=== PATIENT | female | born 1995 | race Caucasian/White ===

== ENCOUNTER 2017-12-02 13:53 | Emergency (ER) | payer MEDICAID, OTHER ==
[~2017-12-02] VITALS: Ht 157.5 cm; Wt 90.7 kg
[2017-12-02 15:55] LABS: BASOPHILS % (AUTO) 1.3 % (0.0-2.0); EOSINOPHILS % (AUTO) 1.4 % (0.0-3.0); HEMATOCRIT 52.3 % (37.0-47.0); HEMOGLOBIN 17.5 G/DL (12.0-16.0); LYMPHOCYTES % (AUTO) 29.2 % (20.0-45.0); MEAN CORPUSCULAR VOLUME 86 FL (80-99); MONOCYTES % (AUTO) 6.4 % (1.0-10.0); NEUTROPHILS % (AUTO) 61.7 % (45.0-75.0); PLATELET COUNT 337 K/UL (150-450); RED BLOOD COUNT 6.07 M/UL (4.20-5.40)
[2017-12-02 16:07] LABS: ANION GAP 9 mmol/L (5-15); BLOOD UREA NITROGEN 12 mg/dL (7-18); CALCIUM 10.1 MG/DL (8.5-10.1); CARBON DIOXIDE 27 MMOL/L (21-32); CHLORIDE 98 MMOL/L (98-107); CREATININE 0.8 MG/DL (0.55-1.30); POTASSIUM 3.8 MMOL/L (3.5-5.1); SODIUM 134 MMOL/L (136-145)
[2017-12-02 16:11] LABS: ALANINE AMINOTRANSFERASE 22 U/L (12-78); ALBUMIN 4.2 G/DL (3.4-5.0); ALBUMIN/GLOBULIN RATIO 0.9 (1.0-2.7); ALKALINE PHOSPHATASE 48 U/L (46-116); ASPARTATE AMINO TRANSFERASE 14 U/L (15-37); BILIRUBIN,TOTAL 0.9 MG/DL (0.2-1.0)
[2017-12-02] MEDS ORDERED: TYLENOL EXTRA500 MG ORAL (16:19)
--- NOTE | 2017-12-02 16:20 | Emergency Room Report ---
History of Present Illness General Chief Complaint: General Complaint Source: Patient Present Illness HPI 22 yo female patient presents to ER complaining of skin numbness over her left jaw x1day. Reports numbness has been constant. Patient reports hx of wisdom teeth extraction last Wednesday and was sent by oral surgeon to ER for further evaluation for blood disorder. Patient reports she had 3 wisdom teeth removed at that time; denies complications of procedure. Patient denies hx of cardiovascular and clotting disease. Denies hx of atrial fibrillation or other cardiac arrhythmia. Denies hx of blood disorder. Denies pain, burning sensation. Denies hx of trauma. Reports hx of acne in the same area. Denies hx of syncopal episode. Denies hx of fever, chest pain, SOB, nausea, vomiting. Allergies: Coded Allergies: PENICILLINS (Verified Allergy, Unknown, 12/02/17) Patient History Past Medical History: see triage record Immunizations: UTD Reviewed Nursing Documentation: PMH: Agreed, PSxH: Agreed Nursing Documentation-PMH Past Medical History: No History, Except For Hx Hypertension: Yes Review of Systems All Other Systems: negative except mentioned in HPI Physical Exam Vital Signs Date Time Temp Pulse Resp B/P (MAP) Pulse Ox O2 Delivery O2 Flow Rate FiO2 12/02/17 14:56 98.0 82 16 153/105 98 Room Air 98.1 Sp02 EP Interpretation: reviewed, normal General Appearance: well appearing, no apparent distress, alert, GCS 15, non- toxic Head: normocephalic, atraumatic Eyes: bilateral eye normal inspection, bilateral eye PERRL, bilateral eye EOMI ENT: hearing grossly normal, normal pharynx, normal voice, TMs + canals normal , uvula midline, moist mucus membranes Neck: full range of motion Respiratory: normal inspection, lungs clear, normal breath sounds, no accessory muscle use, no wheezing, speaking full sentences Cardiovascular #1: regular rate, rhythm Cardiovascular #2: 2+ carotid (R), 2+ carotid (L) Gastrointestinal: non tender, soft, no mass Musculoskeletal: back normal, digits/nails normal, gait/station normal, normal range of motion, no calf tenderness Neurologic: alert, oriented x3, responsive, supervisor insulation III-XII nml as tested, motor strength/tone normal, sensory intact, normal gait, speech normal, other - no facial droop, Psychiatric: mood/affect normal Skin: normal color, no rash, warm/dry, other - left mandible near lower lip: multiple <1cm maculopapular lesions consistent with acne, no TTP, no ecchymosis , no blisters, no vesicles, no edema, no active drainage Lymphatic: no adenopathy Medical Decision Making PA Attestation Dr. Schmidt is my supervising Physician whom patient management has been discussed with. Diagnostic Impression: Primary Impression: Numbness and tingling sensation of skin ER Course Pt. presents to the ED c/o cellulitis.. Ddx considered but are not limited to rash, cellulitis, Diaz's palsy, atrial fibrillation. Low suspicion of Diaz's palsy, physical exam did not show absent forehead wrinkling or facial droop; cranial nerves intact on exam. No hx of injury or trauma to the area; no hx of cardiovascular disease, Imaging not required at this time. Ordered labs and EKG to check for possible clotting disorder or arrhythmia, respectively. Physical exam benign, skin lesions in area of facial numbness consistent with patients hx of acne; reports acne was there prior to onset of numbness symptoms. ER COURSE: EKG negative for arrhythmia, ST elevation. Labs unremarkable, PT or aPTT within normal limits. Discuss results of labs with patient. Informed patient that symptoms may be related to recent wisdom teeth surgery. Instructed patient to continue taking medications as prescribed by oral surgeon. Patient stated she had scheduled followup appointment with surgeon for Wednesday the for followup appointment. Instructed to patient to discuss need for further imaging and testing at that time as needed. Patient reports understanding and agreement to treatment plan. Patient resting comfortably, in no acute distress, nontoxic appearing, speaking in full sentences without difficulty, smiling. DISCHARGE: -Rx provided for Tylenol At this time pt. is stable for d/c to home. Will provide printed patient care instructions, and any necessary prescriptions. Patient instructed to complete current course of antibiotics provided by oral surgeon. Care plan and follow up instructions have been discussed with the patient prior to discharge. Patient instructed to follow-up with primary care provider in 3 - 5 days and discuss further referral. Patient questions asked and answered. ER precautions given. Patient instructed to return to ER immediately for any new or worsening of symptoms including but not limited to increasing SOB, persistent fever, intractable vomiting, calf pain. Labs Test 12/02/17 15:36 White Blood Count 12.0 K/UL (4.8-10.8) Red Blood Count 6.07 M/UL (4.20-5.40) Hemoglobin 17.5 G/DL (12.0-16.0) Hematocrit 52.3 % (37.0-47.0) Mean Corpuscular Volume 86 FL (80-99) Mean Corpuscular Hemoglobin 28.9 PG (27.0-31.0) Mean Corpuscular Hemoglobin Concent 33.5 G/DL (32.0-36.0) Red Cell Distribution Width 12.0 % (11.6-14.8) Platelet Count 337 K/UL (150-450) Mean Platelet Volume 9.4 FL (6.5-10.1) Neutrophils (%) (Auto) 61.7 % (45.0-75.0) Lymphocytes (%) (Auto) 29.2 % (20.0-45.0) Monocytes (%) (Auto) 6.4 % (1.0-10.0) Eosinophils (%) (Auto) 1.4 % (0.0-3.0) Basophils (%) (Auto) 1.3 % (0.0-2.0) Prothrombin Time 10.1 SEC (9.30-11.50) Prothromb Time International Ratio 1.0 (0.9-1.1) Activated Partial Thromboplast Time 30 SEC (23-33) Sodium Level 134 MMOL/L (136-145) Potassium Level 3.8 MMOL/L (3.5-5.1) Chloride Level 98 MMOL/L (98-107) Carbon Dioxide Level 27 MMOL/L (21-32) Anion Gap 9 mmol/L (5-15) Blood Urea Nitrogen 12 mg/dL (7-18) Creatinine 0.8 MG/DL (0.55-1.30) Estimat Glomerular Filtration Rate > 60 mL/min (>60) Glucose Level 94 MG/DL (74-106) Calcium Level 10.1 MG/DL (8.5-10.1) Total Bilirubin 0.9 MG/DL (0.2-1.0) Aspartate Amino Transf (AST/SGOT) 14 U/L (15-37) Alanine Aminotransferase (ALT/SGPT) 22 U/L (12-78) Alkaline Phosphatase 48 U/L (46-116) Total Protein 9.1 G/DL (6.4-8.2) Albumin 4.2 G/DL (3.4-5.0) Globulin 4.9 g/dL Albumin/Globulin Ratio 0.9 (1.0-2.7) EKG Diagnostic Results Rate: normal Rhythm: NSR ST Segments: no acute changes ASA given to the pt in ED: No PA Scribe Text Alexis Caballero PA-C Rhythm Strip Diag. Results EP Interpretation: yes Rate: 86 Rhythm: NSR, no PVC's, no ectopy PA Scribe Text Alexis Caballero PA-C Last Vital Signs Date Time Temp Pulse Resp B/P (MAP) Pulse Ox O2 Delivery O2 Flow Rate FiO2 12/02/17 14:56 98.0 82 16 153/105 98 Room Air 98.1 Disposition: HOME, SELF-CARE Condition: Stable Scripts Acetaminophen* (TYLENOL EXTRA STRENGTH*) 500 Mg Tablet 500 MG ORAL Q8H Y for Prn Headache/Temp > 101, #30 TAB 0 Refills Prov: Brian Caballero 12/02/17 Patient Instructions: Dental Extraction, [id number] Additional Instructions: Followup with primary care provider in 3 -5 days. Take medications as directed. Patient questions asked and answered. ER precautions given, patient instructed to return to ER immediately for any new or worsening of symptoms. Brian Caballero Dec 02, 2017 16:20
[2017-12-02 19:49] VITALS: BP 153/105
[2017-12-02 19:50] VITALS: BP 153/105
--- NOTE | 2017-12-05 15:19 | Cardiology Report ---
APPROVED REPORT EKG Measurement Heart [id number] Normal sinus rhythm Normal ECG
== END 2017-12-02 16:30 | disposition home or self-care (01) ==
LOC: EMR 16:20
DX: R20.2 Paresthesia of skin (principal); I10 Essential (primary) hypertension
CPT/HCPCS: 36415; 80053; 85025; 85610; 85730; 93005; 99284